=== PATIENT | female | born 1965 | race Caucasian/White ===

== ENCOUNTER 2021-06-03 23:21 | Emergency (ER) | payer SELFPAY | END 2021-06-04 01:43 | disposition home or self-care (01) | LOC: CSHERS 23:21 | DX: M25.561 Pain in right knee (principal); E66.9 Obesity, unspecified; Z87.891 Personal history of nicotine dependence ==

== ENCOUNTER 2021-08-12 19:27 | Emergency (ER) | payer SELFPAY ==
[2021-08-13 20:41] LABS: SARS-CoV-2 PCR by NAA Not Detected (NotDetected)
== END 2021-08-12 22:04 | disposition home or self-care (01) ==
LOC: CSHERS 19:27
DX: B34.9 Viral infection, unspecified (principal); E66.9 Obesity, unspecified; Z87.891 Personal history of nicotine dependence; Z20.822 Contact with and (suspected) exposure to COVID-19
CPT/HCPCS: 87804; 99284; U0003; U0005